=== PATIENT | male | born 1940 | race Caucasian/White ===

== ENCOUNTER → 2017-01-03 | Outpatient (CLI) | payer BC, OTHER ==
[~2017-01-03] MED LIST: AMIODARONE HCL200 MG PO; ASPIR 8181 M1 PO; COQ-10100 MG PO; FERROUS SULFAT325 MG PO; FOSAMAX5 MG PO; GLUCOSAMINE-MS1 EACH PO; IBUPROFEN IB200 MG PO; K-DUR20 MEQ PO; LASIX40 MG PO; LOPRESSOR12.5 MG PO; PERCOCET 5/31 TABLET PO; PRAVASTATIN SOD40 MG PO; SUPER B COM1 CAPSULE PO; VITAMIN C500 M1 PO; WARFARIN SODIUM5 MG PO
== END | disposition home or self-care (01) ==
LOC: NUC 06:56
DX: I25.10 Atherosclerotic heart disease of native coronary artery without angina pectoris (principal); R06.02 Shortness of breath; I48.91 Unspecified atrial fibrillation; I10 Essential (primary) hypertension; Z95.1 Presence of aortocoronary bypass graft
CPT/HCPCS: 78452; 93017; 93306; A9500; J2785